=== PATIENT | male | born 1990 | race Caucasian/White ===

== ENCOUNTER 2023-05-06 19:13 | Emergency (ER) | payer BC, SELFPAY ==
[2023-05-06 19:20] VITALS: BP 130/90; PULSE 81; RESP 16; TEMP 36.8; O2SAT 98; BMI 31.8
--- NOTE | 2023-05-06 19:33 | ED_ITS ---
HPI - Alcohol General Chief Complaint: Alcohol Stated Complaint: DETOX CLEARANCE Time Seen by Provider: 05/06/23 19:24 Mode of arrival: walk-in History of Present Illness HPI narrative: patient is an alcoholic. Sent here from alcohol detox center for medical clear ance. He arrives ambulatory and has no complaint. states he does withdraw when not drinking. denies injuries. States past history of depression and he is . Admits he is an alcoholic MD complaint: Reports alcohol intoxication and alcohol dependence Related Data Home Medications Medication Instructions Recorded Confirmed No Known Home Medications 05/06/23 05/06/23 Allergies Allergy/AdvReac Type Severity Reaction Status Date / Time No Known Drug Allergies Allergy Verified 05/06/23 19:26 Review of Systems ROS Status of ROS 10 or more systems reviewed and unremarkable except as noted in history and below Exam Constitutional Vital Signs, click to edit/add: Last Vital Signs Temp 98.2 F 05/06/23 19:20 Pulse 81 05/06/23 19:20 Resp 16 05/06/23 19:20 BP 130/90 05/06/23 19:20 Pulse Ox 98 05/06/23 19:20 O2 Del Method Room Air 05/06/23 19:20 Common normals: no apparent distress, average body habitus, oriented x3, no limitations, healthy appearing, alert and well nourished Eye Common normals: EOMs intact bilaterally and conjunctivae normal Respiratory Common normals: normal respiratory effort and no use of accessory muscles Cardio Common normals: regular rate, regular rhythm, S1 normal heart sound and S2 normal heart sound GI Common normals: Normal to inspection, nondistended, normoactive bowel sounds present, soft to palpation and non-tender Extremity Common normals: normal to inspection and full ROM Neuro Common normals: oriented x3, CN's II-XII intact bilaterally, moves all extremities and no focal motor deficits Psych Appearance: grossly normal Course Vital Signs Vital signs: Vital Signs Temperature 98.2 F 05/06/23 19:20 Pulse Rate 81 05/06/23 19:20 Respiratory Rate 16 05/06/23 19:20 Blood Pressure 130/90 05/06/23 19:20 Pulse Oximetry 98 05/06/23 19:20 Oxygen Delivery Method Room Air 05/06/23 19:20 Temperature 98.2 F 05/06/23 19:20 Pulse Rate 81 05/06/23 19:20 Respiratory Rate 16 05/06/23 19:20 Blood Pressure 130/90 05/06/23 19:20 Pulse Oximetry 98 05/06/23 19:20 Oxygen Delivery Method Room Air 05/06/23 19:20 MDM - Alcohol MDM Narrative Medical decision making narrative: patient is an alcoholic. Presents intoxicated from Detox center. He is in no distress. Labs unremarkable. has mild elevation of LFTs as expected in an alcoholic. Alcohol level is 357. He was asleep but immediately wakes up with mild shake. He still states he feels well. Will discharge back to Detox center Lab Data Labs: Lab Results 05/06/23 Range/Units 19:41 WBC 5.8 (4.0-11.0) 10^3/uL RBC 4.97 (4.70-6.10) 10^6/uL Hgb 16.0 (14.0-18.0) g/dL Hct 47.8 (42.0-54.0) % MCV 96.2 H (80.0-94.0) fL MCH 32.2 (25.9-34.0) pg MCHC 33.5 (29.9-35.2) g/dL RDW 12.5 (11.0-15.0) % Plt Count 182 (150-450) 10^3/uL MPV 10.2 (9.5-13.5) fL Neut % (Auto) 51.1 (43.0-75.0) % Lymph % (Auto) 31.2 (20.5-60.0) % Turner % (Auto) 10.8 (1.7-12.0) % Eos % (Auto) 5.7 (0.9-7.0) % Baso % (Auto) 1.0 (0.2-2.0) % Neut # (Auto) 3.0 (1.4-6.5) 10^3/uL Lymph # (Auto) 1.8 (1.2-3.8) 10^3/uL Turner # (Auto) 0.6 (0.3-0.8) 10^3/uL Eos # (Auto) 0.3 (0.0-0.7) 10^3/uL Baso # (Auto) 0.1 (0.0-0.1) 10^3/uL Abs Immat Gran (auto) 0.01 (0.00-0.03) 10^3/uL Imm/Tot Granulo (auto) 0.2 (0.0-0.5) % Sodium 146 H (136-145) mmol/L Potassium 4.0 (3.5-5.1) mmol/L Chloride 108 H (98-107) mmol/L Carbon Dioxide 25.8 (21.0-32.0) mmol/L Anion Gap 16.2 BUN 9.0 (7.0-18.0) mg/dL Creatinine 0.82 (0.70-1.30) mg/dL Est GFR ( Amer) >60 (>=60) Est GFR (Non-Af Amer) >60 (>=60) BUN/Creatinine Ratio 11.0 Glucose 90 (74-106) mg/dL Calcium 8.9 (8.5-10.1) mg/dL Total Bilirubin 0.8 (0.2-1.0) mg/dL AST 217 H (15-37) U/L ALT 251 H (16-63) U/L Alkaline Phosphatase 75 (46-116) U/L Total Protein 7.9 (6.4-8.2) g/dL Albumin 4.2 (3.4-5.0) g/dL Globulin 3.7 g/dL Albumin/Globulin Ratio 1.1 Urine Opiates Screen Negative (NEGATIVE) Ur Buprenorphine Scrn Negative (NEGATIVE) Ur Oxycodone Screen Negative (NEGATIVE) Urine Methadone Screen Negative (NEGATIVE) Ur Barbiturates Screen Negative (NEGATIVE) U Tricyclic Antidepress Negative (NEGATIVE) Ur Phencyclidine Scrn Negative (NEGATIVE) Ur Amphetamines Screen Negative (NEGATIVE) U Methamphetamines Scrn Negative (NEGATIVE) U Benzodiazepines Scrn Negative (NEGATIVE) Urine Cocaine Screen Positive A (NEGATIVE) U Cannabinoids Screen Negative (NEGATIVE) Ethanol Quant 357 mg/dL Discharge Plan Discharge Chief Complaint: Alcohol Clinical Impression: Alcoholic intoxication Patient Disposition: Home, Self-Care Prescriptions / Home Meds: No Action No Known Home Medications Instructions: Alcohol Intoxication (ED), Abuse of Alcohol (ED) Stand Alone Forms: Portal Instructions Referrals: Physician,Non-Staff, MD [Primary Care Provider] - 1 week
[2023-05-06 19:51] LABS: Basophils Absolute Auto 0.1 10^3/uL (0.0-0.1); Eosinophils Absolute Auto 0.3 10^3/uL (0.0-0.7); Eosinophils Percent Auto 5.7 % (0.9-7.0); Hematocrit 47.8 % (42.0-54.0); Immature Granulocytes Abs Auto 0.01 10^3/uL (0.00-0.03); Immature Granulocytes Pct Auto 0.2 % (0.0-0.5); Lymphocytes Absolute Auto 1.8 10^3/uL (1.2-3.8); Lymphocytes Percent Auto 31.2 % (20.5-60.0); Mean Corpuscular HGB Conc 33.5 g/dL (29.9-35.2); Mean Corpuscular Hemoglobin 32.2 pg (25.9-34.0); Mean Corpuscular Volume 96.2 fL (80.0-94.0); Mean Platelet Volume 10.2 fL (9.5-13.5); Monocytes Absolute Auto 0.6 10^3/uL (0.3-0.8); Monocytes Percent Auto 10.8 % (1.7-12.0); Neutrophils Percent Auto 51.1 % (43.0-75.0); Platelet Count 182 10^3/uL (150-450); Red Blood Count 4.97 10^6/uL (4.70-6.10); Red Cell Distribution Width 12.5 % (11.0-15.0); White Blood Count 5.8 10^3/uL (4.0-11.0)
[2023-05-06 20:01] LABS: Cannabinoid Screen Urine NEGATIVE (NEGATIVE)
[2023-05-06 20:02] LABS: Amphetamine Screen Urine NEGATIVE (NEGATIVE); Barbiturates Screen Urine NEGATIVE (NEGATIVE); Benzodiazepines Screen Urine NEGATIVE (NEGATIVE); Buprenorphine Screen Urine NEGATIVE (NEGATIVE); Cocaine Screen Urine POSITIVE (NEGATIVE); Methadone Screen Urine NEGATIVE (NEGATIVE); Methamphetamines Screen Urine NEGATIVE (NEGATIVE); Opiate Screen Urine NEGATIVE (NEGATIVE); Oxycodone Screen Urine NEGATIVE (NEGATIVE); Phencyclidine Screen Urine NEGATIVE (NEGATIVE); Tricyclic Antidepressant Urine NEGATIVE (NEGATIVE)
[2023-05-06 20:08] LABS: Alanine Aminotransferase 251 U/L (16-63); Albumin Globulin Ratio 1.1; Albumin Level 4.2 g/dL (3.4-5.0); Alkaline Phosphatase 75 U/L (46-116); Anion Gap 16.2; Aspartate Amino Transferase 217 U/L (15-37); Bilirubin Total 0.8 mg/dL (0.2-1.0); Calcium 8.9 mg/dL (8.5-10.1); Carbon Dioxide 25.8 mmol/L (21.0-32.0); Chloride 108 mmol/L (98-107); Estimated GFR (African America >60 (>=60); Estimated GFR (Non-African Ame >60 (>=60); Ethanol 357 mg/dL; Globulin 3.7 g/dL; Glucose 90 mg/dL (74-106); Sodium 146 mmol/L (136-145); Total Protein 7.9 g/dL (6.4-8.2)
== END 2023-05-06 23:10 | disposition home or self-care (01) ==
PROVIDERS: Emergency Provider Internal Medicine
DX: F10.229 Alcohol dependence with intoxication, unspecified (principal); Y90.8 Blood alcohol level of 240 mg/100 ml or more
CPT/HCPCS: 36415; 80053; 80307; 80320; 85025; 99284